=== PATIENT | female | born 1990 | race Caucasian/White ===

== ENCOUNTER 2016-07-23 15:42 | Emergency (ER) | payer OTHER ==
[2016-07-23 16:48] LABS: HEMOGLOBIN 14.1 gm/dl (12.3-15.3); RED BLOOD COUNT 4.84 M/UL (4.00-5.10); WHITE BLOOD COUNT 11.6 K/UL (4.5-11.0)
[2016-07-23 17:02] LABS: BUN/CREATININE RATIO 15 (0-10)
== END 2016-07-23 17:15 | disposition home or self-care (01) ==
LOC: ER1 15:42
PROVIDERS: Emergency Medicine
DX: N20.1 Calculus of ureter (principal); Z79.84 Long term (current) use of oral hypoglycemic drugs
CPT/HCPCS: 36415; 80053; 81001; 82150; 83690; 84703; 85025; 99284

== ENCOUNTER 2020-04-14 12:13 | Outpatient (CLI) | payer OTHER ==
[2020-04-14 13:27] LABS: HEMOGLOBIN 12.5 gm/dl (12.3-15.3); RED BLOOD COUNT 4.48 M/UL (4.00-5.10); WHITE BLOOD COUNT 8.6 K/UL (4.5-11.0)
[2020-04-15] MEDS ORDERED: DOCUSATE SODIU100 MG PO (09:30)
[2020-04-15] MEDS ORDERED: IBUPROFEN600 MG PO (09:30)
[2020-04-15] MEDS ORDERED: HYDROCODON-ACE1 EAC4 PO (09:30)
[2020-04-15] MEDS ORDERED: TRANDATE 200 M200 MG PO (09:51)
[2020-04-15] MEDS ORDERED: PRENATAL VITAM1 EAC5 PO (09:52)
== END 2020-04-14 13:20 | disposition home or self-care (01) ==
LOC: GENOP 12:13
PROVIDERS: Obstetrics & Gynecology
DX: Z53.8 Procedure and treatment not carried out for other reasons (principal)
CPT/HCPCS: 36415; 81001; 85025

== ENCOUNTER 2020-04-15 08:33 | Inpatient (IN) | payer OTHER ==
[~2020-04-15] VITALS: Ht 167.6 cm; Wt 118.8 kg
[2020-04-15] MEDS ORDERED: HYDROCODON-ACE1 EAC4 PO (09:30)
[2020-04-15] MEDS ORDERED: IBUPROFEN600 MG PO (09:30)
[2020-04-15] MEDS ORDERED: DOCUSATE SODIU100 MG PO (09:30)
[2020-04-15] MEDS ORDERED: TRANDATE 200 M200 MG PO (09:51)
[2020-04-15] MEDS ORDERED: PRENATAL VITAM1 EAC5 PO (09:52)
[2020-04-16 05:58] LABS: HEMOGLOBIN 10.4 gm/dl (12.3-15.3)
== END 2020-04-16 15:25 | disposition home or self-care (01) | DRG 788 ==
LOC: OB 08:33
PROVIDERS: ADMIT Obstetrics & Gynecology
PROC: 6A550ZT Pheresis of Cord Blood Stem Cells, Single (ICD-10-PCS; 2020-04-15)
PROC: 10D00Z1 Extraction of Products of Conception, Low, Open Approach (ICD-10-PCS; principal; 2020-04-15 10:30)
PROC: 3E0234Z Introduction of Serum, Toxoid and Vaccine into Muscle, Percutaneous Approach (ICD-10-PCS; 2020-04-16)
DX: O10.92 Unspecified pre-existing hypertension complicating childbirth (principal); Z3A.37 37 weeks gestation of pregnancy; Z37.0 Single live birth; O34.211 Maternal care for low transverse scar from previous cesarean delivery; N85.8 Other specified noninflammatory disorders of uterus; Z23 Encounter for immunization; O69.81X0 Labor and delivery complicated by cord around neck, without compression, not applicable or unspecified; L68.0 Hirsutism; O26.893 Other specified pregnancy related conditions, third trimester; G43.909 Migraine, unspecified, not intractable, without status migrainosus
CPT/HCPCS: 36415; 81001; 82800; 85014; 85018; 85025; 90471; 90472; 90715; C9113; J0690; J1650; J1885; J2270; J2274; J2405; J2590; J3010; J7120

== ENCOUNTER 2020-08-23 14:29 | Emergency (ER) | payer OTHER ==
[~2020-08-23 14:29] MED LIST: DOCUSATE SODIU100 MG PO; HYDROCODON-ACE1 EAC4 PO; IBUPROFEN600 MG PO; PRENATAL VITAM1 EAC5 PO; TRANDATE 200 M200 MG PO
[2020-08-23 15:13] LABS: HEMOGLOBIN 13.9 gm/dl (12.3-15.3); RED BLOOD COUNT 4.95 M/UL (4.00-5.10); WHITE BLOOD COUNT 8.9 K/UL (4.5-11.0)
[2020-08-23 15:40] LABS: BUN/CREATININE RATIO 20 (0-10)
== END 2020-08-23 17:30 | disposition home or self-care (01) ==
LOC: ER1 14:29
PROVIDERS: Emergency Medicine
DX: O20.9 Hemorrhage in early pregnancy, unspecified (principal); O16.1 Unspecified maternal hypertension, first trimester; Z3A.12 12 weeks gestation of pregnancy
CPT/HCPCS: 76801; 80053; 81001; 84702; 85025; 86900; 86901; 99284